=== PATIENT | female | born 1970 | race Caucasian/White ===

== ENCOUNTER → 2024-03-03 11:59 | Outpatient (CLI) | payer OTHER, SELFPAY ==
--- NOTE | 2024-03-03 12:02 | DI.US.S_ITS ---
PROCEDURE: US PELVIC COMPLETE INDICATIONS: MENSES ONE OCCURENCE IN OCT AFTER NO MENSES FOR 8 MONTHS TECHNIQUE: Real-time scanning was performed of the pelvic organs, with image documentation. Additional endovaginal scanning was necessary due to incomplete visualization of the adnexal and endometrial structures by transabdominal scanning. COMPARISON: None. FINDINGS: Uterus: Uterus is anteverted and normal in size at 6 cm. The myometrium is moderately heterogenous with a venetian blind appearance. The endometrium measures 3 mm combined thickness. Findings suggestive of uterine adenomyosis. Ovaries: The right ovary measures 3.3 x 0.8 x 2.7 cm, with a calculated ovarian volume of 3.9 cc. The left ovary measures 3.4 x 1.4 x 2.3 cm, with a calculated ovarian volume of 5.7 cc. The ovaries have a normal sonographic appearance. Less than 12 follicles can be seen in each ovary. No adnexal masses are seen. Within the right adnexa is seen a tubular structure measuring up to 0.7 cm in diameter without color Doppler flow signal which may represent a mildly dilated fallopian tube. At the left adnexa is also seen a tubular structure without increased color Doppler signal measuring up to 0.4 cm in diameter, possibly a mildly dilated left fallopian tube. Other: No pathologic free abdominal or pelvic fluid. The urinary bladder appears morphologically normal. However, postvoid residual is shown to be 120 mL. The partially visualized right kidney and liver appear normal. The partially visualized left kidney appears normal. IMPRESSION: 1. Findings compatible with uterine adenomyosis. 2. Moderate right and mild left hydrosalpinx. 3. Increased postvoid urinary bladder residual volume of 120 mL. We strive to produce accurate, complete, and clear reports of imaging services. To assist us in improving patient care, this report was composed using standard report templates and voice recognition software. Therefore, it may contain abnormal punctuation, insertions and/or omissions. Occasional wrong-word or sound-alike substitutions may occur. Though we review the report and make efforts to correct it, we do recommend that the report be read carefully in proper context to recognize any text inaccuracies. Dictated by: Atif Shannon M.D. on 03/03/2024 at 17:29 Approved by: Atif Shannon M.D. on 03/03/2024 at 17:38
== END ==
PROVIDERS: PCP Family Medicine; Referring Provider Obstetrics & Gynecology; Visit Provider Obstetrics & Gynecology
DX: N93.9 Abnormal uterine and vaginal bleeding, unspecified (principal); N70.11 Chronic salpingitis
CPT/HCPCS: 76830; 76856

== ENCOUNTER → 2025-04-11 08:21 | Outpatient (CLI) | payer OTHER, SELFPAY | LOC: RESP 08:22 | PROVIDERS: Referring Provider Internal Medicine Critical Care Medicine; Visit Provider Internal Medicine Critical Care Medicine | DX: R05.3 Chronic cough (principal); J98.8 Other specified respiratory disorders; R94.2 Abnormal results of pulmonary function studies; R53.83 Other fatigue; N95.1 Menopausal and female climacteric states; Z86.32 Personal history of gestational diabetes | CPT/HCPCS: 36415; 80053; 83036; 84402; 84403; 84439; 84443; 85025; 94060; 94726; 94729 ==

== ENCOUNTER → 2025-04-11 10:40 | Outpatient (CLI) | payer OTHER, SELFPAY ==
[2025-04-11 11:38] LABS: Add Manual Diff / Slide Review NO; Hematocrit 42.9 % (36-46); Hemoglobin 14.5 g/dL (12.0-16.0); Lymphocytes Absolute Auto 2200 /uL (1100-4500); Mean Corpuscular HGB Conc 33.7 % (30-36); Mean Corpuscular Hemoglobin 28.1 PG (26-34); Mean Corpuscular Volume 83.3 fL (80-100); Platelet Count 370 X10^3/uL (150-400)
[2025-04-11 11:52] LABS: Alanine Aminotransferase 30 IU/L (<35); Albumin 5.0 g/dL (3.5-5.0); Albumin Globulin Ratio 1.6 (1.0-2.8); Alkaline Phosphatase 65 U/L (38-126); Blood Urea Nitrogen 12 mg/dL (7-17); Calcium 10.0 mg/dL (8.4-10.2); Carbon Dioxide 28 mmol/L (22-32); Chloride 103 mmol/L (98-107); Estimated Glomerular Filt Rate > 60 mL/min (>60); Globulin 3.1 g/dL (1.7-4.1); Glucose 94 mg/dL (70-99); HEMOLYSIS < 15 (0-50); Potassium 4.5 mmol/L (3.4-5.1); Sodium 141 mmol/L (137-145); Total Protein 8.1 g/dL (6.3-8.2)
[2025-04-11 11:54] LABS: Hemoglobin A1C% w Est Avg Glu 5.4 % (4.0-6.0)
[2025-04-11 12:19] LABS: Free T4, Direct Thyroxine 1.28 ng/dL (0.78-2.19)
[2025-04-11 12:33] LABS: Thyroid Stimulating Hormone 1.88 uIU/mL (0.47-4.68)
== END ==
PROVIDERS: Referring Provider Obstetrics & Gynecology; Visit Provider Obstetrics & Gynecology
DX: R53.83 Other fatigue (principal); N95.1 Menopausal and female climacteric states; Z86.32 Personal history of gestational diabetes
CPT/HCPCS: 36415; 80053; 83036; 84402; 84403; 84439; 84443; 85025